=== PATIENT | female | born 2000 | race Two or more races ===

== ENCOUNTER 2019-08-31 21:53 | Observation (INO) | payer MEDICAID ==
[~2019-08-31] VITALS: Ht 160 cm; Wt 52.6 kg
[2019-08-31 23:12] LABS: CLARITY URINE CLEAR (CLEAR); COLOR URINE YELLOW (YELLOW); KETONES URINE NEGATIVE (NEGATIVE); LEUKOCYTE ESTERASE URINE 2+ (NEGATIVE); NITRITE URINE NEGATIVE (NEGATIVE); OCCULT BLOOD URINE NEGATIVE (NEGATIVE); PROTEIN URINE NEGATIVE (NEGATIVE); UROBILINOGEN URINE 0.2 E.U./dL (0.2-1.0)
== END 2019-08-31 23:10 | disposition home or self-care (01) ==
LOC: ER 21:53 → 8 EST LDRP 22:42
PROVIDERS: ADMIT Obstetrics & Gynecology; ATTEND Obstetrics & Gynecology
DX: O26.892 Other specified pregnancy related conditions, second trimester (principal); R10.31 Right lower quadrant pain; M54.5 Low back pain; Z3A.23 23 weeks gestation of pregnancy
CPT/HCPCS: 81003; 99281; G0378

== ENCOUNTER 2019-11-18 04:54 | Inpatient (IN) | payer MEDICAID ==
[~2019-11-18] VITALS: Ht 160 cm; Wt 56.2 kg
[2019-11-18] MEDS ORDERED: MAGNESIUM 2 G PREMIX 50 ML IV SCH (07:00)
[2019-11-18] MEDS ORDERED: MAGNESIUM 4 G PREMIX 100 ML IV SCH (07:00)
[2019-11-18] MEDS ORDERED: RHO(D) IMMUNE GLOBULIN 300 MCG/SYR IM NR (07:00)
[2019-11-18] MEDS ORDERED: LABETALOL HCL 5MG/ML VIAL 20ML IV PRN ×3 (07:00)
[2019-11-18] MEDS ORDERED: HYDRALAZINE 20MG/ML VIAL IV PRN (07:00)
[2019-11-18] MEDS ORDERED: NALOXONE HCL 0.4 MG/ML 1ML VIAL IM PRN ×2 (07:00→21:00)
[2019-11-18 07:32] LABS: INR 0.9; PARTIAL THROMBOPLASTIN TIME 29.5 sec (23.4-31.0)
[2019-11-18 07:39] LABS: BASOPHILS % 0.3 % (0.0-2.0); EOSINOPHILS % 0.6 % (0.0-5.0); HEMATOCRIT. 33.7 % (36.0-48.0); HEMOGLOBIN. 11.4 g/dL (12.0-16.0); LYMPHOCYTES % 13.3 % (20.0-50.0); MEAN CORPUSCULAR HEMOGLOBIN 29.7 pg (28.0-32.0); MEAN CORPUSCULAR VOLUME 87.7 fL (81.0-99.0); MEAN PLATELET VOLUME 9.5 fl (7.4-10.4); MONOCYTES % 5.6 % (2.0-8.0); NEUTROPHILS % 80.2 % (40.0-76.0); PLATELET 228 x1000/uL (130-400); RED BLOOD CELL COUNT 3.84 mill/uL (4.2-5.4); RED CELL DISTRIBUTION WIDTH 13.7 % (11.6-14.6)
[2019-11-18] MEDS ORDERED: AMPICILLIN 2,000 MG in SODIUM CHLORIDE 0.9% 100 ML IV SCH (08:00)
[2019-11-18 08:34] LABS: CHLORIDE 106 mEq/L (98-107)
[2019-11-18] MEDS ORDERED: ACETAMINOPHEN 500MG TABLET PO NR (08:34)
[2019-11-18 08:41] LABS: CLARITY URINE CLEAR (CLEAR); COLOR URINE YELLOW (YELLOW); KETONES URINE NEGATIVE (NEGATIVE); LEUKOCYTE ESTERASE URINE NEGATIVE (NEGATIVE); NITRITE URINE NEGATIVE (NEGATIVE); OCCULT BLOOD URINE 2+ (NEGATIVE); PROTEIN URINE 4+ (NEGATIVE)
[2019-11-18] MEDS: MAGNESIUM SULFATE 20 GM in DEXT 5% WATER 460 ML IV SCH ×2 (08:44→20:18)
[2019-11-18] MEDS ORDERED: AZITHROMYCIN 500 MG in DEXT 5% WATER 250 ML IV SCH (09:00)
[2019-11-18 09:52] LABS: *AMPHETAMINES SCREEN URINE NEGATIVE (NEGATIVE); *BARBITURATES SCREEN URINE NEGATIVE (NEGATIVE); *BENZODIAZEPINES SCREEN URINE NEGATIVE (NEGATIVE); *COCAINE SCREEN URINE NEGATIVE (NEGATIVE); METHADONE URINE SCREEN NEGATIVE (NEGATIVE); OPIATES URINE SCREEN NEGATIVE (NEGATIVE)
[2019-11-18 09:53] LABS: PHENCYCLIDINE URINE SCREEN NEGATIVE (NEGATIVE)
[2019-11-18 10:28] LABS: PROTHROMBIN TIME < 9.0 sec (9.6-11.0)
[2019-11-18 10:43] LABS: CANNABINOID URINE SCREEN PRESUMTIVE POSITIVE (NEGATIVE)
[2019-11-18 11:54] LABS: HEPATITIS B SURFACE ANTIGEN NEGATIVE
[2019-11-18] MEDS: LACTATED RINGERS 1,000 ML IV SCH ×2 (12:01→23:50)
[2019-11-18] MEDS ORDERED: BETAMETHASONE ACET/BETAMET 30 MG/5 ML VIAL IM SCH (13:15)
[2019-11-18] MEDS: AMPICILLIN 1,000 MG in SODIUM CHLORIDE 0.9% 50 ML IV SCH ×2 (14:54→21:59)
[2019-11-18] MEDS ORDERED: ACETAMINOPHEN 325MG TABLET PO NR (20:15)
[2019-11-18] MEDS ORDERED: DEXT 5%/LR + PITOCIN 20UNITS/L 1,000 ML IV SCH (20:49)
[2019-11-18] MEDS ORDERED: CARBOPROST TROMETHAMINE 250 MCG/ML AMPUL IM PRN (21:00)
[2019-11-18] MEDS ORDERED: MISOPROSTOL 200MCG TABLET VG PRN (21:00)
[2019-11-18] MEDS ORDERED: METHYLERGONOVINE MALEATE 0.2 MG/ML IM PRN (21:00)
[2019-11-18] MEDS ORDERED: LIDOCAINE HCL 1% 20ML VIAL (Pyxis) INJ INFIL SCH (21:00)
[2019-11-18] MEDS ORDERED: BUTORPHANOL TARTRATE 2 MG/ML VIAL IV PRN (21:00)
[2019-11-18] MEDS ORDERED: ROPIVACAINE HCL/PF EPIDURAL 200 ML EPI SCH (23:30)
[2019-11-19] MEDS: AMPICILLIN 1,000 MG in SODIUM CHLORIDE 0.9% 50 ML IV SCH (02:11)
[2019-11-19] MEDS ORDERED: DEXT 5%/LR + PITOCIN 20UNITS/L 1,000 ML IV SCH (05:49)
[2019-11-19 05:50] LABS: BASOPHILS % 0.4 % (0.0-2.0); CHLORIDE 104 mEq/L (98-107); HEMATOCRIT. 35.5 % (36.0-48.0); HEMOGLOBIN. 11.8 g/dL (12.0-16.0); LYMPHOCYTES % 7.2 % (20.0-50.0); MEAN CORPUSCULAR HEMOGLOBIN 29.5 pg (28.0-32.0); MEAN CORPUSCULAR VOLUME 88.4 fL (81.0-99.0); MEAN PLATELET VOLUME 9.3 fl (7.4-10.4); MONOCYTES % 3.5 % (2.0-8.0); NEUTROPHILS % 88.9 % (40.0-76.0); PLATELET 268 x1000/uL (130-400); RED BLOOD CELL COUNT 4.01 mill/uL (4.2-5.4); RED CELL DISTRIBUTION WIDTH 13.8 % (11.6-14.6)
[2019-11-19 05:51] LABS: CLARITY URINE CLOUDY (CLEAR); COLOR URINE ORANGE (YELLOW); KETONES URINE NEGATIVE (NEGATIVE); LEUKOCYTE ESTERASE URINE TRACE (NEGATIVE); NITRITE URINE NEGATIVE (NEGATIVE); OCCULT BLOOD URINE 3+ (NEGATIVE); PH URINE 7.5 (4.5-8.0); PROTEIN URINE 3+ (NEGATIVE); SPECIFIC GRAVITY URINE 1.024 (1.005-1.030); UROBILINOGEN URINE 0.2 E.U./dL (0.2-1.0)
[2019-11-19] MEDS ORDERED: IBUPROFEN 400MG TABLET PO PRN (06:00)
[2019-11-19] MEDS ORDERED: RHO(D) IMMUNE GLOBULIN 300 MCG/SYR IM PRN (06:00)
[2019-11-19] MEDS ORDERED: DEXT 5%/LR + PITOCIN 20UNITS/L 1,000 ML IV ONE (06:21)
[2019-11-19] MEDS: IBUPROFEN 800MG TABLET PO PRN ×2 (08:04→20:30)
[2019-11-19 09:10] VITALS: BP 124/78
[2019-11-19] MEDS: AMOXICILLIN 250MG CAPSULE PO SCH ×2 (09:36→21:41)
[2019-11-19] MEDS: AZITHROMYCIN 250 MG TABLET PO SCH ×2 (09:36→21:42)
[2019-11-19 17:15] VITALS: BP 112/58
[2019-11-19 22:00] VITALS: BP 115/62
[2019-11-20] MEDS: IBUPROFEN 800MG TABLET PO PRN ×2 (05:21→13:30)
[2019-11-20] MEDS: AMOXICILLIN 250MG CAPSULE PO SCH ×3 (05:22→21:17)
[2019-11-20] MEDS: AZITHROMYCIN 250 MG TABLET PO SCH (05:23)
[2019-11-20 05:35] VITALS: BP 112/71
[2019-11-20 06:52] LABS: BASOPHILS % 0.3 % (0.0-2.0); EOSINOPHILS % 0.4 % (0.0-5.0); HEMATOCRIT. 32.5 % (36.0-48.0); HEMOGLOBIN. 10.8 g/dL (12.0-16.0); LYMPHOCYTES % 16.8 % (20.0-50.0); MEAN CORPUSCULAR HEMOGLOBIN 29.7 pg (28.0-32.0); MEAN CORPUSCULAR VOLUME 89.6 fL (81.0-99.0); MEAN PLATELET VOLUME 9.4 fl (7.4-10.4); MONOCYTES % 4.1 % (2.0-8.0); NEUTROPHILS % 78.4 % (40.0-76.0); PLATELET 222 x1000/uL (130-400); RED BLOOD CELL COUNT 3.62 mill/uL (4.2-5.4); RED CELL DISTRIBUTION WIDTH 14.1 % (11.6-14.6)
[2019-11-20 07:59] VITALS: BP 125/74
[2019-11-20 16:14] VITALS: BP 108/56
[2019-11-20 22:00] VITALS: BP 127/81
[2019-11-21] MEDS: AMOXICILLIN 250MG CAPSULE PO SCH (05:05)
[2019-11-21] MEDS: IBUPROFEN 800MG TABLET PO PRN (05:06)
[2019-11-21 06:00] VITALS: BP 113/72
[2019-11-21 07:30] VITALS: BP 130/82
[2019-11-21] MEDS ORDERED: IBUP-2030 PO (09:03)
[2019-11-21] MEDS ORDERED: AZIT500T2 PO (09:31)
[2019-11-21] MEDS ORDERED: GUAI5LIQ8 MT (09:31)
[2019-11-25 04:09] LABS: CANNABINOID CONFIRMATION URINE Comment: (.)
== END 2019-11-21 14:30 | disposition home or self-care (01) | DRG 560 ==
LOC: 8 EST LDRP 04:54 → OBSVTOIN 04:54 → 8EST 11-19 08:45
PROVIDERS: ADMIT Obstetrics & Gynecology; ATTEND Obstetrics & Gynecology
PROC: 10E0XZZ Delivery of Products of Conception, External Approach (ICD-10-PCS; principal; 2019-11-19)
DX: O42.913 Preterm premature rupture of membranes, unspecified as to length of time between rupture and onset of labor, third trimester (principal); O99.324 Drug use complicating childbirth; O13.4 Gestational [pregnancy-induced] hypertension without significant proteinuria, complicating childbirth; O36.5930 Maternal care for other known or suspected poor fetal growth, third trimester, not applicable or unspecified; F12.10 Cannabis abuse, uncomplicated; Z37.0 Single live birth; Z3A.35 35 weeks gestation of pregnancy
CPT/HCPCS: 36415; 76805; 76818; 80053; 80305; 80349; 81003; 83735; 84550; 85025; 86592; 86703; 86762; 86850; 86900; 87340; 88307; 99281; J0290; J0456; J0595; J0702; J2590; J3475; J3490; J7050; J7060; A4315

== ENCOUNTER 2024-04-11 22:03 | Emergency (ER) | payer MEDICAID ==
[~2024-04-11] VITALS: Ht 162.6 cm; Wt 55.0 kg
[~2024-04-11 22:03] MED LIST: AZIT500T2 PO; GUAI5LIQ8 MT; IBUP-2030 PO
[2024-04-11 22:05] VITALS: O2SAT 98
[2024-04-11 22:38] LABS: CLARITY URINE TURBID (CLEAR); COLOR URINE YELLOW (YELLOW); GLUCOSE URINE NEGATIVE (NEGATIVE); KETONES URINE NEGATIVE (NEGATIVE); LEUKOCYTE ESTERASE URINE 3+ (NEGATIVE); NITRITE URINE NEGATIVE (NEGATIVE); OCCULT BLOOD URINE TRACE (NEGATIVE); PROTEIN URINE 1+ (NEGATIVE); SPECIFIC GRAVITY URINE 1.013 (1.005-1.030); UROBILINOGEN URINE 0.2 E.U./dL (0.2-1.0)
[2024-04-11 22:58] LABS: BACTERIA URINE 4+; RBC URINE 0-2 /hpf (0-2); SQUAMOUS EPITHELIAL CELL URINE 2+ /lpf (RARE/1+)
[2024-04-11] MEDS: ACETAMINOPHEN 325MG TABLET PO ONE (23:13)
[2024-04-11] MEDS: SODIUM CHLORIDE 0.9% 1,000 ML IV ONE (23:15)
[2024-04-11 23:21] LABS: BASOPHILS % 0.5 % (0.0-2.0); HEMATOCRIT. 29.7 % (36.0-48.0); MEAN CORPUSCULAR HGB CONC 33.5 g/dL (31.0-37.0); MEAN CORPUSCULAR VOLUME 83.6 fL (81.0-99.0); MEAN PLATELET VOLUME 8.9 fl (7.4-10.4); MONOCYTES % 9.7 % (2.0-8.0); NEUTROPHILS % 65.8 % (40.0-76.0); PLATELET 295 x1000/uL (130-400); RED BLOOD CELL COUNT 3.56 mill/uL (4.2-5.4); RED CELL DISTRIBUTION WIDTH 14.3 % (11.6-14.6); WHITE BLOOD COUNT 10.6 x1000/uL (4.5-11.0)
[2024-04-11 23:24] LABS: CARBON DIOXIDE 24 mEq/L (21-32); CHLORIDE 109 mEq/L (98-107); POTASSIUM 3.9 mEq/L (3.5-5.1); SODIUM 139 mEq/L (136-145)
[2024-04-11 23:25] LABS: CALCIUM 9.1 mg/dL (8.7-10.4)
[2024-04-11 23:30] LABS: CREATININE 0.5 mg/dL (0.6-1.0); GLUCOSE 74 mg/dL (70-105); UREA NITROGEN BLOOD 9 mg/dL (9-23)
[2024-04-11 23:31] LABS: B-HCG QUANTITATIVE > 1000 mIU/mL (<3)
[2024-04-11 23:32] LABS: ALANINE AMINOTRANSFERASE 16 IU/L (10-49); ALBUMIN 3.7 g/dL (3.2-4.8); ASPARTATE AMINOTRANSFERASE 22 IU/L (<34); BILIRUBIN TOTAL 0.3 mg/dL (0.1-1.0); PROTEIN TOTAL 6.1 g/dL (6.0-8.3)
[2024-04-12] MEDS ORDERED: CEPH500T MT (00:38)
[2024-04-12] MEDS ORDERED: CEFTRIAXONE 1GM/50ML 50 ML IV ONE (00:45)
[2024-04-12] MEDS: CEFAZOLIN 1000MG PREMIX 50 ML IV ONE (00:54)
[2024-04-12 00:59] VITALS: BP 115/67; PULSE 77; RESP 12; TEMP 98.1
[2024-04-12] MEDS ORDERED: ACETAMINOPHEN 325MG TABLET PO NR (01:30)
== END 2024-04-12 01:32 | disposition home or self-care (01) ==
LOC: ER 22:03
DX: O23.33 Infections of other parts of urinary tract in pregnancy, third trimester (principal); M54.9 Dorsalgia, unspecified; O26.893 Other specified pregnancy related conditions, third trimester; Z3A.32 32 weeks gestation of pregnancy
CPT/HCPCS: 99285; 96361; 80053; 81003; 81025; 84702; 85025; 36415; 93970; 96365; 76830; 76856; J7030; J0690; J0696

== ENCOUNTER 2025-10-05 06:26 | Emergency (ER) | payer MEDICAID ==
[~2025-10-05] VITALS: Ht 165.1 cm; Wt 45.0 kg
[~2025-10-05 06:26] MED LIST changes: +CEPH500T MT
[2025-10-05 06:33] VITALS: O2SAT 99
[2025-10-05] MEDS: SODIUM CHLORIDE 0.9% 1,000 ML IV ONE (08:39)
[2025-10-05] MEDS: MORPHINE SULFATE 4 MG/ML INJ (FOR IV/IM USE) IV ONE (08:39)
[2025-10-05 08:51] LABS: BASOPHILS % 0.5 % (0.0-2.0); EOSINOPHILS % 2.2 % (0.0-5.0); HEMATOCRIT. 39.5 % (36.0-48.0); HEMOGLOBIN. 12.7 g/dL (12.0-16.0); LYMPHOCYTES % 17.8 % (20.0-50.0); MEAN PLATELET VOLUME 8.4 fl (7.4-10.4); MONOCYTES % 3.4 % (2.0-8.0); NEUTROPHILS % 76.1 % (40.0-76.0); PLATELET 341 x1000/uL (130-400); RED BLOOD CELL COUNT 4.44 mill/uL (4.2-5.4); RED CELL DISTRIBUTION WIDTH 13.6 % (11.6-14.6)
[2025-10-05 09:04] LABS: CLARITY URINE CLEAR (CLEAR); COLOR URINE YELLOW (YELLOW); GLUCOSE URINE NEGATIVE (NEGATIVE); KETONES URINE 1+ (NEGATIVE); LEUKOCYTE ESTERASE URINE NEGATIVE (NEGATIVE); NITRITE URINE NEGATIVE (NEGATIVE); OCCULT BLOOD URINE 2+ (NEGATIVE); PH URINE 5.5 (4.5-8.0); PROTEIN URINE TRACE (NEGATIVE); SPECIFIC GRAVITY URINE 1.025 (1.005-1.030); UROBILINOGEN URINE 0.2 E.U./dL (0.2-1.0)
[2025-10-05 09:14] LABS: CREATININE 0.8 mg/dL (0.6-1.0)
[2025-10-05 09:15] LABS: UREA NITROGEN BLOOD 8 mg/dL (9-23)
[2025-10-05 09:16] LABS: ASPARTATE AMINOTRANSFERASE 27 IU/L (<34)
[2025-10-05 09:17] LABS: BILIRUBIN DIRECT 0.2 mg/dL (<=3.0); BILIRUBIN TOTAL 0.6 mg/dL (0.1-1.0); HCG SCREEN NEGATIVE
[2025-10-05 09:18] LABS: PROTEIN TOTAL 8.6 g/dL (6.0-8.3)
[2025-10-05 09:20] LABS: SQUAMOUS EPITHELIAL CELL URINE 1+ /lpf (RARE/1+)
[2025-10-05 09:21] LABS: BACTERIA URINE TRACE; MUCUS URINE 1+ /lpf (< = 2+)
[2025-10-05 09:22] LABS: RBC URINE 15-25 /hpf (0-2); WBC URINE 0-2 /hpf (0-2)
[2025-10-05] MEDS ORDERED: IBUP-2030 PO (09:40)
[2025-10-05 10:09] VITALS: BP 125/66; PULSE 62; RESP 17; TEMP 36.8; O2SAT 100
== END 2025-10-05 10:09 | disposition home or self-care (01) ==
LOC: ER 06:26
DX: R10.24 Suprapubic pain (principal); Z79.899 Other long term (current) drug therapy
CPT/HCPCS: 99285; 96374; 76830; 76856; 96361; 80076; 80048; 81003; 84703; 83690; 85025; 36415; J2270; J7030